=== PATIENT | female | born 1965 | race Caucasian/White ===

== ENCOUNTER 2018-01-16 08:45 | Emergency (ER) | payer BC ==
[2018-01-16 08:56] VITALS: BP 156/98
[2018-01-16] MEDS: Aspirin Low Dose CHEW TAB* 81 MG PO ONE (09:00)
--- NOTE | 2018-01-16 09:08 | ED ---
HPI Chest Pain - HPI Summary HPI Summary: 52 yr old female with the complaint of chest pain. Onset of pain yesterday at 10 am, and it has been coming and going. Pain is dull ache over left side of chest and pain radiates into her left arm. The patient has associated SOB, nausea, sweats. She has a family history of CAD. She is a smoker. She has no other complaints. - History of Current Complaint Chief Complaint: UCChestPain Time Seen by Provider: 01/16/18 08:55 Hx Last Menstrual Period: n/a Pain Intensity: 5 - Allergy/Home Medications Allergies/Adverse Reactions: Allergies Allergy/AdvReac Type Severity Reaction Status Date / Time No Known Allergies Allergy Verified 01/16/18 08:56 PMH/Surg Hx/FS Hx/Imm Hx Endocrine/Hematology History: Denies: Hx Anticoagulant Therapy, Hx Diabetes, Hx Thyroid Disease Cardiovascular History: Reports: Hx Hypertension Denies: Hx Congestive Heart Failure, Hx Deep Vein Thrombosis, Hx Myocardial Infarction, Hx Pacemaker/ICD Respiratory History: Denies: Hx Asthma, Hx Chronic Obstructive Pulmonary Disease (COPD), Hx Lung Cancer, Hx Pneumonia, Hx Pulmonary Embolism GI History: Denies: Hx Gall Bladder Disease, Hx Gastrointestinal Bleed, Hx Ulcer, Hx Urosepsis History: Denies: Hx Kidney Stones, Hx Renal Disease Sensory History: Reports: Hx Contacts or Glasses - BOTH Denies: Hx Hearing Aid Opthamlomology History: Reports: Hx Contacts or Glasses - BOTH Neurological History: Reports: Other Neuro Impairments/Disorders - PAIN CLINIC PT Denies: Hx Dementia, Hx Migraine, Hx Seizures, Hx Transient Ischemic Attacks (TIA) Psychiatric History: Denies: Hx Anxiety, Hx Depression, Hx Panic Disorder, Hx Schizophrenia, Hx Bipolar Disorder - Surgical History Surgery Procedure, Year, and Place: TUBAL LIGATION 1986. APPENDECTOMY A TEEN. MASS EXC RIGHT HAND MANY YRS AGO. right shoulder sx Hx Anesthesia Reactions: No Infectious Disease History: No Infectious Disease History: Denies: Traveled Outside the [place] in Last 30 Days - Family History Known Family History: Positive: Cardiac Disease, Hypertension - Social History Alcohol Use: Rare Substance Use Type: Reports: None Smoking Status (MU): Current Every Day Smoker Amount Used/How Often: 1 PPD Length of Time of Smoking/Using Tobacco: 20+ YRS Have You Smoked in the Last Year: Yes Review of Systems Positive: Chest Pain Positive: Shortness Of Breath All Other Systems Reviewed And Are Negative: Yes Physical Exam Triage Information Reviewed: Yes Vital Signs On Initial Exam: Initial Vitals Temp Pulse Resp BP Pulse Ox 98.5 F 99 22 156/98 98 01/16/18 08:47 01/16/18 08:47 01/16/18 08:47 01/16/18 08:47 01/16/18 08:47 Vital Signs Reviewed: Yes Appearance: Positive: Well-Appearing, No Pain Distress, Well-Nourished. Negative: Pain Distress Skin: Positive: Warm Head/Face: Positive: Normal Head/Face Inspection Eyes: Positive: EOMI ENT: Positive: Normal ENT inspection Respiratory/Lung Sounds: Positive: Other - normal effort Abdomen Description: Negative: Distended Neurological: Positive: Sensory/Motor Intact, Alert, Oriented to Person Place, Time, CN Intact II-III, Normal Gait, Speech Normal Psychiatric: Positive: Normal - Angela Coma Scale Best Eye Response: 4 - Spontaneous Best Motor Response: 6 - Obeys Commands Best Verbal Response: 5 - Oriented Coma Scale Total: 15 Diagnostics - Vital Signs Vital Signs Temp Pulse Resp BP Pulse Ox 01/16/18 08:47 98.5 F 99 22 156/98 98 - Laboratory Lab Statement: Any lab studies that have been ordered have been reviewed, and results considered in the medical decision making process. Chest Pain Course/Dx - Course Course Of Treatment: 52 yr old with chest pain, and st depression inferior, lat leads. Patient is aware of her abnormal EKG and that her symptoms are consitent with possible CAD/heart attack symptoms. She refuses ambulance transport to the hospital, and her daughter who is present also understands the risk of transporting not by ambulance. , cardiac arrest, heart attack, disability. The daughter wants to route sales driver her mom to [place] by private car. They signed out AMA. - Diagnoses Provider Diagnoses: Chest pain, Hypertension Discharge - Discharge Plan Condition: Good Disposition: HOME Patient Education Materials: Chest Pain (ED), Hypertension (ED) Referrals: Antoine Ochoa MD [Primary Care Provider] -
== END 2018-01-16 09:05 | disposition home or self-care (01) ==
LOC: UCCORT 08:45
DX: R07.9 Chest pain, unspecified (principal); I10 Essential (primary) hypertension; F17.210 Nicotine dependence, cigarettes, uncomplicated; Z84.89 Family history of other specified conditions
CPT/HCPCS: 93005; 99212; A9270-GY; G0463

== ENCOUNTER 2018-01-16 09:58 | Emergency (ER) | payer BC ==
--- NOTE | 2018-01-16 10:44 | RAD ---
HISTORY: Chest pain COMPARISONS: None VIEWS: 1: frontal portable view of the chest at 10:34 AM FINDINGS: LINES AND TUBES: None. CARDIOMEDIASTINAL SILHOUETTE: The cardiomediastinal silhouette is normal for portable technique. PLEURA: The costophrenic angles are sharp. No pleural abnormalities are noted. LUNG PARENCHYMA: The lungs are clear. ABDOMEN: The upper abdomen is clear. There is no subphrenic gas. BONES AND SOFT TISSUES: No bone or soft tissue abnormalities are noted. IMPRESSION: NO ACTIVE CARDIOPULMONARY DISEASE.
[2018-01-16 10:49] LABS: ABS Basophils 0.1 10^3/ul (0-0.2); ABS Eosinophils 0.2 10^3/ul (0-0.6); ABS Lymphocytes 2.9 10^3/ul (1.0-4.8); ABS Monocytes 0.6 10^3/ul (0-0.8); ABS Neutrophils 7.5 10^3/ul (1.5-7.7); ABS Nucleated RBC 0 10^3/ul; Eosinophil % 1.8 % (0-6); Hematocrit 50 % (35-47); Hemoglobin 17.3 g/dl (12.0-16.0); Lymphocyte % 25.7 % (25-47); Mean Corpuscular HGB Conc 35 g/dl (31-36); Mean Corpuscular Hemoglobin 34 pg (27-31); Mean Corpuscular Volume 97 fL (80-97); Mean Platelet Volume 8 um3 (7.4-10.4); Nucleated Red Blood Cells % 0; Platelet Count 233 10^3/ul (150-450); Red Blood Count 5.12 10^6/ul (4.0-5.4); Red Cell Distribution Width 13 % (10.5-15); White Blood Count 11.3 10^3/ul (3.5-10.8)
[2018-01-16 10:54] LABS: EGFR Non-African American 74.3 (>60)
[2018-01-16 11:02] LABS: INR 0.89 (0.77-1.02)
[2018-01-16] MEDS ORDERED: NS 0.9% 1000 ML* 1,000 ML IV ONE (11:54)
[2018-01-16] MEDS ORDERED: Ketorolac INJ* 30 MG/ML 1 ML VIAL IV PUSH ONE (13:32)
[2018-01-16 15:30] VITALS: BP 117/70
--- NOTE | 2018-01-17 08:20 | ED ---
Kai Amos Angela, scribed for Arpan Castorena MD on 01/16/18 at 1016 . HPI Chest Pain - HPI Summary HPI Summary: This pt is a 52 y/o [facility] c/o mid sternal chest pain that began yesterday. Pt reports her mid sternal chest pain radiated down her left arm. She describes her pain as sharp and rates her pain 8 /10 in severity, at its worse the pain is 10/10 in severity. This morning pt notes she had nausea. Denies vomiting. 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 Pt is a current smoker, 1ppd. Pt denies any cardiac PMHx. She reports PMHx of HTN. - History of Current Complaint Chief Complaint: EDChestPainROMI Time Seen by Provider: 01/16/18 10:04 Hx Obtained From: Patient Hx Last Menstrual Period: n/a Onset/Duration: Started Days Ago - 1, Atraumatic, Still Present Timing: Lasting Days - 1 Current Severity: Severe Pain Intensity: 8 Pain Scale Used: 0-10 Numeric Chest Pain Location: Mid Sternal Chest Pain Radiates: Yes Chest Pain Radiates To:: Arm - left Character: Sharp/Stabbing - sharp Aggravating Factor(s): Nothing Alleviating Factor(s): Nothing Associated Signs and Symptoms: Positive: Chest Pain, Nausea. Negative: Vomiting - Allergy/Home Medications Allergies/Adverse Reactions: Allergies Allergy/AdvReac Type Severity Reaction Status Date / Time No Known Allergies Allergy Verified 01/16/18 08:56 Home Medications: Home Medications Black Cohosh Root [Menopause Support] 20 mg PO DAILY 01/16/18 [History Confirmed 01/16/18] Cyanocobalamin TAB* [Vitamin B12 TAB*] 500 mcg PO DAILY 01/16/18 [History Confirmed 01/16/18] Vitamin E CAP* 200 unit PO DAILY 01/16/18 [History Confirmed 01/16/18] PMH/Surg Hx/FS Hx/Imm Hx Endocrine/Hematology History: Denies: Hx Anticoagulant Therapy, Hx Diabetes, Hx Thyroid Disease Cardiovascular History: Reports: Hx Hypertension Denies: Hx Congestive Heart Failure, Hx Deep Vein Thrombosis, Hx Myocardial Infarction, Hx Pacemaker/ICD Respiratory History: Denies: Hx Asthma, Hx Chronic Obstructive Pulmonary Disease (COPD), Hx Lung Cancer, Hx Pneumonia, Hx Pulmonary Embolism GI History: Denies: Hx Gall Bladder Disease, Hx Gastrointestinal Bleed, Hx Ulcer, Hx Urosepsis History: Denies: Hx Kidney Stones, Hx Renal Disease Sensory History: Reports: Hx Contacts or Glasses - BOTH Denies: Hx Hearing Aid Opthamlomology History: Reports: Hx Contacts or Glasses - BOTH Neurological History: Reports: Other Neuro Impairments/Disorders - PAIN CLINIC PT Denies: Hx Dementia, Hx Migraine, Hx Seizures, Hx Transient Ischemic Attacks (TIA) Psychiatric History: Denies: Hx Anxiety, Hx Depression, Hx Panic Disorder, Hx Schizophrenia, Hx Bipolar Disorder - Surgical History Surgery Procedure, Year, and Place: TUBAL LIGATION 1986. APPENDECTOMY A TEEN. MASS EXC RIGHT HAND MANY YRS AGO. right shoulder sx Hx Anesthesia Reactions: No Infectious Disease History: No Infectious Disease History: Denies: Traveled Outside the [place] in Last 30 Days - Family History Known Family History: Positive: Cardiac Disease - Mother and grandmother: [place] at around age 40. , Hypertension - Social History Alcohol Use: Rare Substance Use Type: Reports: None Smoking Status (MU): Current Every Day Smoker Amount Used/How Often: 1 PPD Length of Time of Smoking/Using Tobacco: 20+ YRS Have You Smoked in the Last Year: Yes Review of Systems Negative: Fever, Chills Positive: Chest Pain Positive: Nausea. Negative: Vomiting All Other Systems Reviewed And Are Negative: Yes Physical Exam - Summary Physical Exam Summary: VITAL SIGNS: Reviewed. GENERAL: Patient is a well-developed and nourished female who is lying comfortable in the stretcher. Patient is not in any acute respiratory distress. HEAD AND FACE: No signs of trauma. No ecchymosis, hematomas or skull depressions. No sinus tenderness. EYES: PERRLA, EOMI x 2, No injected conjunctiva, no nystagmus. EARS: Hearing grossly intact. Ear canals and tympanic membranes are within normal limits. MOUTH: Oropharynx within normal limits. NECK: Supple, trachea is midline, no adenopathy, no JVD, no carotid bruit, no c- spine tenderness, neck with full ROM. CHEST: Symmetric, no tenderness at palpation LUNGS: Clear to auscultation bilaterally. No wheezing or crackles. CVS: Regular rate and rhythm, S1 and S2 present, no murmurs or gallops appreciated. ABDOMEN: Soft, non-tender. No signs of distention. No rebound no guarding, and no masses palpated. Bowel sounds are normal. EXTREMITIES: FROM in all major joints, no edema, no cyanosis or clubbing. NEURO: Alert and oriented x 3. No acute neurological deficits. Speech is normal and follows commands. SKIN: Dry and warm Triage Information Reviewed: Yes Vital Signs On Initial Exam: Initial Vitals Temp Pulse Resp BP Pulse Ox 97.7 F 101 20 163/91 98 01/16/18 09:59 01/16/18 09:59 01/16/18 09:59 01/16/18 09:59 01/16/18 09:59 Vital Signs Reviewed: Yes Diagnostics - Vital Signs Vital Signs Temp Pulse Resp BP Pulse Ox 01/16/18 09:59 97.7 F 101 20 163/91 98 - Laboratory Result Diagrams: 01/16/18 10:21 01/16/18 10:21 Lab Statement: Any lab studies that have been ordered have been reviewed, and results considered in the medical decision making process. - Radiology Chest XR Xray Interpretation: No Acute Changes - IMPRESSION: No active cardiopulmonary disease. Dr. Castorena has reviewed this radiology report. Radiology Interpretation Completed By: Radiologist - EKG 10:24 Cardiac Rate: NL EKG Rhythm: Sinus Rhythm - at 83 bpm EKG Interpretation: No ST elevation. Normal axis. Chest Pain Course/Dx - Course Assessment/Plan: This pt is a 52 y/o female [facility] c/o mid sternal chest pain that began yesterday. Pt reports her mid sternal chest pain radiated down her left arm. She describes her pain as sharp and rates her pain 8/10 in severity, at its worse the pain is 10/10 in severity. This morning pt notes she had nausea. Denies vomiting. 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 Pt is a current smoker, 1ppd. Pt denies any cardiac PMHx. She reports PMHx of HTN. Test results without any significant abnormalities. Two troponins, 4 hours apart, are both negative. She was given Toradol and her symptoms improved. Pt is completely asymptomatic in the ED. Therefore I have low suspicion for acute coronary syndrome and no suspicion for PE since she is not hypoxic or tachycardic. Since the pt is asymptomatic she will be discharged to home with follow up from PCP. Pt is instructed to return to the ED for any worsening or new symptoms. Pt is hemodynamically stable, alert and oriented x3. - Diagnoses Provider Diagnoses: Chest pain Discharge - Discharge Plan Condition: Stable Disposition: HOME Patient Education Materials: Chest Pain (ED) Referrals: Antoine Ochoa MD [Primary Care Provider] - 3 Days Additional Instructions: Please follow up with your primary care provider. RETURN TO THE ED FOR ANY WORSENING SYMPTOMS. The documentation as recorded by the Kai florence Angela accurately reflects the service I personally performed and the decisions made by Raffaele reaves Walter, MD.
== END 2018-01-16 14:30 | disposition home or self-care (01) ==
LOC: ED 09:58
DX: R07.9 Chest pain, unspecified (principal); R11.0 Nausea; Z86.79 Personal history of other diseases of the circulatory system; F17.210 Nicotine dependence, cigarettes, uncomplicated
CPT/HCPCS: 36415; 71045; 80053; 82550; 82553; 83605; 83735; 83880; 84443; 84484; 85025; 85610; 85730; 93005; 96374; 99282